=== PATIENT | female | born 1990 | race Caucasian/White ===

== ENCOUNTER 2021-11-28 09:38 | Outpatient (CLI) | payer SELFPAY ==
[2021-11-28 23:51] LABS: SARS-CoV-2 PCR by NAA Not Detected (NotDetected)
== END 2021-11-28 09:39 | disposition home or self-care (01) ==
LOC: CSHLAB 09:38
PROVIDERS: ATTEND Obstetrics & Gynecology
DX: Z20.822 Contact with and (suspected) exposure to COVID-19 (principal)
CPT/HCPCS: U0003; U0005

== ENCOUNTER 2021-12-02 05:30 | Inpatient (IN) | payer OTHER, SELFPAY ==
[~2021-12-02 05:30] MED LIST: Butorphanol Tartrate 1 MG/ML VIAL SLOW IVP PRN; HYDROcodone/Acetaminophen 5/325 mg Tablet PO PRN; Ibuprofen 800 MG TAB PO PRN; Lactated Ringer's 1,000 ML IV SCH; Lidocaine 1% (PF) 30 ML VIAL SC PRN; NS w/ Oxytocin 30 units 500 ML IV SCH; Ondansetron PF 4 MG/2 ML Vial IVP PRN; Promethazine HCl 25 MG/ML VIAL IM PRN; hydrALAZINE 20 MG/ML VIAL SLOW IVP PRN
[2021-12-02] MEDS ORDERED: Penicillin G Potassium 5 MILL.UNITS in Sodium Chloride 0.9% 100 ML IVPB SCH (06:15)
[2021-12-02 07:13] LABS: Hemoglobin 13.5 g/dL (12.0-15.5); Mean Corpuscular HGB CONC 33.9 g/dL (32.0-36.0); Mean Corpuscular Hemoglobin 29.9 pg (27.0-33.0); Mean Corpuscular Volume 88.1 fl (81.6-98.3); Mean Platelet Volume 11.2 fl (7.4-10.4); Platelet Count 191 10x3/uL (150-450); RBC Distribution Width 13.6 % (11.5-14.5); Red Blood Cell (RBC) Count 4.52 10x6/uL (3.90-5.03); White Blood Cell (WBC) Count 8.2 10x3/uL (3.5-10.5)
[2021-12-02 07:43] LABS: Hep B Surf Ag Non-Reactive S/CO (NonReactive)
[2021-12-02 07:44] LABS: Syphilis Antibody Nonreactive (Nonreactive); Syphilis Antibody Index 0.05 S/CO (<1.00 Non-Reactive)
[2021-12-02 07:50] LABS: HBSAg Index 0.21 S/CO (0-0.99)
[2021-12-02 07:54] VITALS: BMI 29.8
[2021-12-02] MEDS: Penicillin G 2.5 MILL.units 2.5 MILL.UNITS in Premix Bag 1 BAG IVPB SCH ×2 (11:29→15:58)
[2021-12-02] MEDS ORDERED: Fentanyl 2 mcg/Bup 0.1% Cadd 100 ML ONE (12:29)
[2021-12-02] MEDS ORDERED: ePHEDrine Sulfate 50 MG/10 ML VIAL SLOW IVP PRN (12:59)
[2021-12-02] MEDS ORDERED: Lactated Ringer's 500 ML IV PRN (12:59)
[2021-12-02] MEDS ORDERED: Acetaminophen 325 MG TAB PO PRN (12:59)
[2021-12-02] MEDS ORDERED: Naloxone HCl 0.4 mg/ml Vial IVP PRN ×2 (12:59)
[2021-12-02] MEDS ORDERED: Ondansetron PF 4 MG/2 ML Vial IVP PRN ×2 (12:59→16:33)
[2021-12-02] MEDS ORDERED: Promethazine HCl 25 MG/ML VIAL IM PRN (12:59)
[2021-12-02] MEDS ORDERED: Hydrocerin (Eucerin) Cream 120 gm Jar TOP PRN (12:59)
[2021-12-02] MEDS ORDERED: diphenhydrAMINE 50 MG/ML VIAL IVP PRN (12:59)
[2021-12-02] MEDS ORDERED: Fentanyl 2 mcg/Bupivacaine 0.1% Cassette 100 ML EPIDURAL SCH (13:00)
[2021-12-02] MEDS ORDERED: Communication Order-Pharmacy FS SCH (13:00)
[2021-12-02] MEDS ORDERED: Benzocaine-Menthol 82.5 ML CAN TOP PRN (16:33)
[2021-12-02] MEDS ORDERED: Preparation H Ointment 28 GM TUBE PR PRN (16:33)
[2021-12-02] MEDS ORDERED: hydrALAZINE 20 MG/ML VIAL SLOW IVP PRN (16:33)
[2021-12-02] MEDS ORDERED: Milk Of Magnesia 30 ML UDCUP PO PRN (16:33)
[2021-12-02] MEDS ORDERED: Lanolin Ointment 7 GM TUBE TOP PRN (16:33)
[2021-12-02] MEDS ORDERED: Bisacodyl 10 MG SUPP PR PRN (16:33)
[2021-12-02] MEDS ORDERED: HYDROcodone/Acetaminophen 5/325 mg Tablet PO PRN ×2 (16:33)
[2021-12-02] MEDS: Ferrous Sulfate 325 MG TAB PO SCH (17:00)
[2021-12-02] MEDS: Docusate 100 MG CAP PO SCH (21:05)
[2021-12-02] MEDS: Ibuprofen 800 MG TAB PO SCH (21:06)
[2021-12-03] MEDS: Ibuprofen 800 MG TAB PO SCH ×3 (05:37→21:44)
[2021-12-03] MEDS: Ferrous Sulfate 325 MG TAB PO SCH ×2 (07:51→15:19)
[2021-12-03] MEDS: Penicillin G 2.5 MILL.units 2.5 MILL.UNITS in Premix Bag 1 BAG IVPB SCH (07:58)
[2021-12-03] MEDS: Docusate 100 MG CAP PO SCH ×2 (09:40→21:44)
[2021-12-03] MEDS: Prenatal Vitamin 1 TAB PO SCH (09:40)
[2021-12-03] MEDS ORDERED: Boostrix 0.5 ML (Tdap) VIAL IM ONE (16:33)
[2021-12-04] MEDS: Ibuprofen 800 MG TAB PO SCH (06:21)
[2021-12-04] MEDS: Ferrous Sulfate 325 MG TAB PO SCH (07:15)
[2021-12-04 07:52] VITALS: BP 135/87; TEMP 98.5
[2021-12-04] MEDS: Prenatal Vitamin 1 TAB PO SCH (08:47)
[2021-12-04] MEDS: Docusate 100 MG CAP PO SCH (08:47)
== END 2021-12-04 09:55 | disposition home or self-care (01) | DRG 807 ==
LOC: CSHLD 06:07 → CSHPP 20:07
PROVIDERS: ADMIT Obstetrics & Gynecology; ATTEND Obstetrics & Gynecology
PROC: 10E0XZZ Delivery of Products of Conception, External Approach (ICD-10-PCS; principal; 2021-12-02)
PROC: 0HQ9XZZ Repair Perineum Skin, External Approach (ICD-10-PCS; 2021-12-02)
PROC: 10907ZC Drainage of Amniotic Fluid, Therapeutic from Products of Conception, Via Natural or Artificial Opening (ICD-10-PCS; 2021-12-02)
PROC: 3E033VJ Introduction of Other Hormone into Peripheral Vein, Percutaneous Approach (ICD-10-PCS; 2021-12-02)
DX: O99.824 Streptococcus B carrier state complicating childbirth (principal); Z37.0 Single live birth; Z3A.39 39 weeks gestation of pregnancy; O76 Abnormality in fetal heart rate and rhythm complicating labor and delivery; O70.0 First degree perineal laceration during delivery
CPT/HCPCS: 51702; 85027; 86780; 86850; 86900; 86901; 87340; J2540; J2590; J3490